=== PATIENT | female | born 1980 | race Caucasian/White ===

== ENCOUNTER 2017-06-25 11:11 | Emergency (ER) | payer MEDICARE, MEDICAID ==
[~2017-06-25] VITALS: Ht 167.6 cm; Wt 46.8 kg
[2017-06-25] MEDS ORDERED: FLUO10CA30 PO (11:57)
[2017-06-25] MEDS ORDERED: ARIP30TA7 PO (11:57)
[2017-06-25] MEDS ORDERED: CLON1TAB4 PO (11:57)
[2017-06-25 12:01] LABS: BASOPHILS % (AUTO) 0.3 % (0-1); EOSINOPHILS # (AUTO) 0.1 X10'3 (0-0.9); EOSINOPHILS % (AUTO) 1.7 % (0-6); HEMATOCRIT 33.6 % (35.0-45.0); HEMOGLOBIN 11.7 g/dl (12.0-16.0); LYMPHOCYTES # (AUTO) 2.1 X10'3 (1.1-4.8); LYMPHOCYTES % (AUTO) 25.9 % (21-51); MEAN CORPUSCULAR HEMOGLOBIN 31.8 PG (27.0-31.0); MEAN CORPUSCULAR HGB CONC 34.8 % (33.0-36.5); MEAN CORPUSCULAR VOLUME 91.4 FL (78-98); MEAN PLATELET VOLUME 6.8 FL (7.4-10.4); MONOCYTES # (AUTO) 0.6 X10'3 (0-0.9); MONOCYTES % (AUTO) 7.4 % (2-12); NEUTROPHILS # (AUTO) 5.2 X10'3 (1.8-7.7); NEUTROPHILS % (AUTO) 64.7 % (42-75); PLATELET COUNT 372 X10'3 (140-440); RED BLOOD COUNT 3.68 X10'6 (4.20-5.60); RED CELL DISTRIBUTION WIDTH 12.9 % (11.5-14.5); WHITE BLOOD COUNT 8.1 X10'3 (4.5-11.0)
[2017-06-25 12:15] LABS: ALANINE AMINOTRANSFERASE 80 U/L (12-78); ALBUMIN 3.3 G/DL (3.4-5.0); ALBUMIN/GLOBULIN RATIO 0.8 (1.1-1.5); ALKALINE PHOSPHATASE 73 IU/L (46-116); ANION GAP 10 (8-16); ASPARTATE AMINO TRANSFERASE 45 U/L (10-37); BILIRUBIN,TOTAL 0.4 MG/DL (0.1-1.0); BLOOD UREA NITROGEN 31 MG/DL (7-18); BUN/CREATININE RATIO 41.9 (6.6-38.0); CALCIUM 8.9 MG/DL (8.5-10.1); CHLORIDE 105 MMOL/L (99-107); CREATININE 0.74 MG/DL (0.40-0.90); ETHANOL < 0.010 GM/DL (0.0-0.010); GLUCOSE 84 MG/DL (70-104); POTASSIUM 3.4 MMOL/L (3.5-5.1); SODIUM 139 MMOL/L (135-145); TOTAL CARBON DIOXIDE 24.1 MMOL/L (24-32); TOTAL PROTEIN 7.5 G/DL (6.4-8.2); eGFR 89 ML/MIN
[2017-06-25 12:24] LABS: URINE HCG NEGATIVE (NEG)
[2017-06-25 12:26] LABS: CLARITY,URINE TURBID (Clear); COLOR,URINE YELLOW (Yellow); GLUCOSE, URINE NEGATIVE (Neg); KETONES,URINE NEGATIVE (Neg); LEUKOCYTE ESTERASE ,URINE MODERATE (Neg); NITRITES, URINE NEGATIVE (Neg); OCCULT BLOOD,URINE SMALL (Neg); PH,URINE 5.5 (4.8-8.0); PROTEIN,URINE TRACE mg/dl (Neg)
[2017-06-25 12:31] LABS: UA COLLECTION TYPE CLN CATCH MIDSTREAM; URINE AMPHETAMINE SCREEN POSITIVE (Neg); URINE BARBITUATE SCREEN NEGATIVE (Neg); URINE BENZODIAZEPINES SCREEN NEGATIVE (Neg); URINE CANNABINOID SCREEN POSITIVE (Neg); URINE COCAINE SCREEN NEGATIVE (Neg); URINE METHADONE SCREEN NEGATIVE (Neg); URINE OPIATE SCREEN NEGATIVE (Neg); URINE PHENCYCLIDINE SCREEN NEGATIVE (Neg)
[2017-06-25 12:48] LABS: WBC,URINE 30-50 /HPF (0-4)
[2017-06-25 12:50] LABS: BACTERIA,URINE 2+ /HPF (Neg); MUCUS STRANDS FEW /LPF (Neg); SQUAMOUS EPITHELIAL CELL,UR MANY /LPF (FEW)
[2017-06-25] MEDS ORDERED: LORazepam 1 MG tablet PO ONE (16:00)
[2017-06-25] MEDS ORDERED: haloperidol lactate 5mg/ml inj IM ONE ×2 (16:15→16:16)
[2017-06-25 16:49] LABS: CLARITY,URINE CLEAR (Clear); COLOR,URINE YELLOW (Yellow); GLUCOSE, URINE NEGATIVE (Neg); KETONES,URINE NEGATIVE (Neg); LEUKOCYTE ESTERASE ,URINE SMALL (Neg); NITRITES, URINE NEGATIVE (Neg); OCCULT BLOOD,URINE NEGATIVE (Neg); PROTEIN,URINE NEGATIVE (Neg); UA COLLECTION TYPE CLN CATCH MIDSTREAM
[2017-06-25 17:00] LABS: BACTERIA,URINE FEW /HPF (Neg); RBC,URINE 0-2 /HPF (0-2); SQUAMOUS EPITHELIAL CELL,UR FEW /LPF (FEW); TRICHOMONAS,URINE FEW /HPF (NEGATIVE)
[2017-06-26] MEDS ORDERED: haloperidol lactate 5mg/ml inj IM ONE (10:15)
[2017-06-26] MEDS ORDERED: LORazepam 1 MG tablet PO ONE (10:15)
[2017-06-26] MEDS ORDERED: diphenhydrAMINE 25mg capsule PO ONE (10:15)
[2017-06-26] MEDS: nicotine 21mg patch - 24 hr TD SCH (16:52)
[2017-06-26] MEDS: clonazePAM 1mg tablet PO SCH (20:37)
[2017-06-27] MEDS: clonazePAM 1mg tablet PO SCH ×2 (08:52→21:02)
[2017-06-27] MEDS: FLUoxetine 10mg capsule PO SCH (08:52)
[2017-06-27] MEDS: nicotine 21mg patch - 24 hr TD SCH (08:53)
[2017-06-27] MEDS: aripiprazole 5mg tablet PO SCH (08:53)
[2017-06-28] MEDS: aripiprazole 5mg tablet PO SCH (08:37)
[2017-06-28] MEDS: FLUoxetine 10mg capsule PO SCH (08:37)
[2017-06-28] MEDS: clonazePAM 1mg tablet PO SCH (08:37)
[2017-06-28] MEDS: nicotine 21mg patch - 24 hr TD SCH (08:38)
[2017-06-28] MEDS ORDERED: ARIP15TA3 PO (09:01)
[2017-06-28 09:19] VITALS: BP 106/68
== END 2017-06-28 09:21 | disposition home or self-care (01) ==
LOC: ER 11:12
DX: F29 Unspecified psychosis not due to a substance or known physiological condition (principal); F31.9 Bipolar disorder, unspecified; D64.9 Anemia, unspecified; F15.10 Other stimulant abuse, uncomplicated; F12.10 Cannabis abuse, uncomplicated; E07.9 Disorder of thyroid, unspecified; F17.200 Nicotine dependence, unspecified, uncomplicated; Z60.2 Problems related to living alone; Z59.0 Homelessness; Z88.8 Allergy status to other drugs, medicaments and biological substances; Z79.899 Other long term (current) drug therapy
CPT/HCPCS: 36415; 80053; 80305; 80320; 81001; 81025; 84443; 85025; 87088; 96372; 99285; J1630; Q0163

== ENCOUNTER 2017-07-18 15:56 | Emergency (ER) | payer MEDICARE, MEDICAID ==
[~2017-07-18] VITALS: Ht 182781.3 cm; Wt 54.5 kg
[~2017-07-18 15:56] MED LIST: ARIP15TA3 PO; ARIP30TA7 PO; CLON1TAB4 PO; FLUO10CA30 PO
[2017-07-18 16:33] LABS: BASOPHILS % (AUTO) 0.5 % (0-1); EOSINOPHILS # (AUTO) 0.3 X10'3 (0-0.9); EOSINOPHILS % (AUTO) 3.9 % (0-6); HEMATOCRIT 37.6 % (35.0-45.0); HEMOGLOBIN 13.1 g/dl (12.0-16.0); LYMPHOCYTES # (AUTO) 1.7 X10'3 (1.1-4.8); LYMPHOCYTES % (AUTO) 23.3 % (21-51); MEAN CORPUSCULAR HEMOGLOBIN 31.8 PG (27.0-31.0); MEAN CORPUSCULAR HGB CONC 34.9 % (33.0-36.5); MEAN CORPUSCULAR VOLUME 91.3 FL (78-98); MEAN PLATELET VOLUME 6.2 FL (7.4-10.4); MONOCYTES # (AUTO) 0.4 X10'3 (0-0.9); MONOCYTES % (AUTO) 5.9 % (2-12); NEUTROPHILS # (AUTO) 4.9 X10'3 (1.8-7.7); NEUTROPHILS % (AUTO) 66.4 % (42-75); PLATELET COUNT 421 X10'3 (140-440); RED BLOOD COUNT 4.12 X10'6 (4.20-5.60); RED CELL DISTRIBUTION WIDTH 13.7 % (11.5-14.5); WHITE BLOOD COUNT 7.4 X10'3 (4.5-11.0)
[2017-07-18 16:57] LABS: ALANINE AMINOTRANSFERASE 75 U/L (12-78); ALBUMIN 3.3 G/DL (3.4-5.0); ALBUMIN/GLOBULIN RATIO 0.8 (1.1-1.5); ALKALINE PHOSPHATASE 74 IU/L (46-116); ANION GAP 6 (8-16); ASPARTATE AMINO TRANSFERASE 44 U/L (10-37); BILIRUBIN,TOTAL 0.5 MG/DL (0.1-1.0); BLOOD UREA NITROGEN 16 MG/DL (7-18); BUN/CREATININE RATIO 19.8 (6.6-38.0); CALCIUM 8.8 MG/DL (8.5-10.1); CHLORIDE 108 MMOL/L (99-107); CREATININE 0.81 MG/DL (0.40-0.90); GLUCOSE 71 MG/DL (70-104); POTASSIUM 3.7 MMOL/L (3.5-5.1); SODIUM 142 MMOL/L (135-145); TOTAL CARBON DIOXIDE 28.2 MMOL/L (24-32); TOTAL PROTEIN 7.7 G/DL (6.4-8.2); eGFR 80 ML/MIN
[2017-07-18 17:05] LABS: ETHANOL < 0.010 GM/DL (0.0-0.010)
[2017-07-18] MEDS ORDERED: diphenhydrAMINE 50 mg/ml inj IM ONE (17:20)
[2017-07-18] MEDS ORDERED: haloperidol lactate 5mg/ml inj IM ONE (17:20)
[2017-07-18] MEDS ORDERED: LORazepam 2 mg/ml vial IM ONE (17:20)
[2017-07-18 17:41] LABS: CLARITY,URINE CLOUDY (Clear); COLOR,URINE YELLOW (Yellow); GLUCOSE, URINE NEGATIVE (Neg); KETONES,URINE NEGATIVE (Neg); LEUKOCYTE ESTERASE ,URINE LARGE (Neg); NITRITES, URINE NEGATIVE (Neg); OCCULT BLOOD,URINE NEGATIVE (Neg); PH,URINE 6.5 (4.8-8.0); PROTEIN,URINE TRACE mg/dl (Neg); UROBILINOGEN,URINE 0.2 E.U/dL (0.2-1.0)
[2017-07-18 17:43] LABS: UA COLLECTION TYPE VOIDED; URINE HCG NEGATIVE (NEG)
[2017-07-18 17:51] LABS: AMORPHOUS PHOSPHATES 2+
[2017-07-18 17:55] LABS: SQUAMOUS EPITHELIAL CELL,UR MODERATE /LPF (FEW); URINE AMPHETAMINE SCREEN POSITIVE (Neg); URINE BARBITUATE SCREEN NEGATIVE (Neg); URINE BENZODIAZEPINES SCREEN NEGATIVE (Neg); URINE CANNABINOID SCREEN POSITIVE (Neg); URINE COCAINE SCREEN NEGATIVE (Neg); URINE METHADONE SCREEN NEGATIVE (Neg); URINE OPIATE SCREEN NEGATIVE (Neg); URINE PHENCYCLIDINE SCREEN NEGATIVE (Neg)
[2017-07-18 17:56] LABS: BACTERIA,URINE 2+ /HPF (Neg); WBC,URINE 50-100 /HPF (0-4)
[2017-07-19] MEDS ORDERED: aripiprazole 5mg tablet PO SCH (08:00)
[2017-07-19] MEDS ORDERED: FLUoxetine 10mg capsule PO SCH (08:00)
[2017-07-19] MEDS ORDERED: clonazePAM 1mg tablet PO SCH (08:00)
[2017-07-19] MEDS ORDERED: aripiprazole 400mg suspension ER syringe IM ONE (12:45)
[2017-07-19 17:42] VITALS: BP 126/78
== END 2017-07-19 19:11 | disposition home or self-care (01) ==
LOC: ER 15:57
DX: F31.9 Bipolar disorder, unspecified (principal); F15.10 Other stimulant abuse, uncomplicated; F14.10 Cocaine abuse, uncomplicated; F17.200 Nicotine dependence, unspecified, uncomplicated; Z88.8 Allergy status to other drugs, medicaments and biological substances
CPT/HCPCS: 36415; 80053; 80305; 80320; 81001; 81025; 84443; 85025; 87077; 87088; 96372; 99285; J1200; J1630; J2060